=== PATIENT | male | born 1965 | race Caucasian/White ===

== ENCOUNTER 2023-04-21 10:38 | Emergency (ER) | payer OTHER ==
[2023-04-21 10:47] VITALS: BP 122/71; PULSE 75; RESP 18; TEMP 98; BMI 39.9
[2023-04-21] MEDS ORDERED: KETOROLAC TROMETHAMINE 30 MG/1 ML VIAL IM ONE (11:56)
[2023-04-21] MEDS ORDERED: LIDOCAINE 5% TOPICAL PATCH TP ONE (11:57)
[2023-04-21] MEDS ORDERED: KETOROLAC TROMETHAMINE 30 MG/1 ML VIAL ONE (12:03)
[2023-04-21] MEDS ORDERED: LIDOCAINE PATCH REMOVAL MC SCH (22:00)
== END 2023-04-21 13:00 | disposition home or self-care (01) ==
LOC: JERFT 10:38
PROC: 3E0233Z Introduction of Anti-inflammatory into Muscle, Percutaneous Approach (ICD-10-PCS; principal; 2023-04-21)
DX: M25.561 Pain in right knee (principal); R26.89 Other abnormalities of gait and mobility
CPT/HCPCS: 73560-TC-RT-FY; 99284-25